=== PATIENT | male | born 1995 | race Caucasian/White ===

== ENCOUNTER 2025-06-06 18:33 | Emergency (ER) | payer OTHER ==
[~2025-06-06] VITALS: Ht 175.3 cm; Wt 108.9 kg
[2025-06-06 18:46] VITALS: BP 172/89; TEMP 98.4; O2SAT 100
[2025-06-06 20:37] LABS: PLATELET COUNT (AUTO) 287 K/uL (150-450); RED BLOOD CELL COUNT(AUTO) 5.51 MIL/uL (4.5-6.0); RED CELL DISTRIBUTION WIDTH 13.2 % (11.5-15.0); WHITE BLOOD COUNT (AUTO) 7.2 K/uL (4.3-11.0)
[2025-06-06 20:44] LABS: CALCIUM, SERUM 8.9 mg/dL (8.5-10.1); CREATININE 0.8 mg/dL (0.6-1.3); SODIUM SERUM 136 mmol/L (136-145); UREA NITROGEN, BLOOD 12 mg/dL (7-18)
[2025-06-06 20:56] LABS: NT-PRO BNP 37 pg/mL (0-125)
== END 2025-06-06 22:42 | disposition home or self-care (01) ==
LOC: ER 18:50
DX: R07.89 Other chest pain (principal); R03.0 Elevated blood-pressure reading, without diagnosis of hypertension; R06.02 Shortness of breath; E66.9 Obesity, unspecified; F17.290 Nicotine dependence, other tobacco product, uncomplicated; I51.9 Heart disease, unspecified
CPT/HCPCS: 36415; 71045-TC; 80048-TC; 83880; 84484-TC; 85025-TC